=== PATIENT | female | born 1955 | race Caucasian/White ===

== ENCOUNTER 2017-03-24 08:23 | Day surgery (SDC) | payer BC ==
[~2017-03-24] VITALS: Ht 154.9 cm; Wt 61.2 kg
--- NOTE | ~2017-03-24 | EGD ---
EGD REPORT [place] [address] [address] NAME: FERNANDA PASCAL : 53 STATUS : REG [facility] [place] PAT#: [id number] AGE: 61 ADM/REG DATE : 03/24/17 MR#: [id number] REPORT SERV DATE: 03/26/17 DICTATED BY: DATE: REPORT STATUS : Draft TRANSCRIBED BY: [employer] DATE: 03/26/17 [facility] Patient Name: Fernanda Pascal Date of : 1955 Attending MD: NAIF BOLANOS MD Procedure Date No Time: 03/24/2017 Procedure: Upper GI endoscopy Indications: Epigastric abdominal pain, Unexplained chest pain Referring MD: Kalani Izquierdo MD Medicines: Monitored Anesthesia Care Complications: No immediate complications. Procedure: Pre-Anesthesia Assessment: - ASA Grade Assessment: III - A patient with severe systemic disease. After obtaining informed consent, the endoscope was passed under direct vision. Throughout the procedure, the patient's blood pressure, pulse, and oxygen saturations were monitored continuously. The GIF [id number] was introduced through the mouth, and advanced to the third part of duodenum. The upper GI endoscopy was accomplished without difficulty. The patient tolerated the procedure well. Findings: Mild erythema was found at the gastroesophageal junction. No other significant abnormalities were identified in a careful examination of the esophagus. There is no endoscopic evidence of Voss's esophagus, areas of erosion, hiatus hernia, ulcerations or varices in the entire esophagus. Many non-bleeding cratered, linear and superficial gastric ulcers were found in the gastric body and in the gastric antrum. The largest lesion was 4 mm in largest dimension. Biopsies were taken with a cold forceps for histology. No other significant abnormalities were identified in a careful examination of the stomach. There is no endoscopic evidence of varices, stenosis or mass in the entire examined stomach. Patchy mildly erythematous mucosa was found in the duodenal bulb. The exam of the duodenum was otherwise normal. There is no endoscopic evidence of stenosis or ulceration in the entire examined duodenum. The cardia and gastric fundus were normal on retroflexion. Impression: - Erythema at the gastroesophageal junction. - Gastric ulcers with clean base. Biopsied. EGD REPORT [address] [address] NAME: [facility] 53 STATUS : REG [facility] [place] PAT#: [id number] AGE: 61 ADM/REG DATE : 03/24/17 MR#: [id number] REPORT SERV DATE: 03/26/17 DICTATED BY: DATE: REPORT STATUS : Draft TRANSCRIBED BY: [employer] DATE: 03/26/17 - Erythematous duodenopathy. Recommendation: - Patient has a contact number available for emergencies. The signs and symptoms of potential delayed complications were discussed with the patient. Return to normal activities tomorrow. Written discharge instructions were provided to the patient. - Return to previous diet. - Discharge patient to home. - No aspirin, ibuprofen, naproxen, or other non-steroidal anti-inflammatory drugs. - Continue present medications. - Await pathology results. - Use Protonix (pantoprazole) 40 mg PO daily for 12 weeks. - Repeat the upper endoscopy in 12 weeks for surveillance. Procedure Code(s): --- Professional --- 01713, Esophagogastroduodenoscopy, flexible, transoral; with biopsy, single or multiple Diagnosis Code(s): --- Professional --- K22.9, Disease of esophagus, unspecified K25.9, Gastric ulcer, unspecified as acute or chronic, without hemorrhage or perforation K31.89, Other diseases of stomach and duodenum R10.13, Epigastric pain R07.9, Chest pain, unspecified CPT copyright 2013 [employer]. All rights reserved. 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 NAIF BOLANOS MD 03/24/2017 9:57 AM This report has been signed electronically. Number of Addenda: 0 Note Initiated On: 03/24/2017 9:40 AM Scope Withdrawal Time 0 hours 0 minutes 0 seconds [id number] [id number]
[~2017-03-24 08:23] MED LIST: AMIT10 PO; ASAB PO; ASABAYER PO; AT25 PO; ATV1 PO; CALTRA600D PO; CORDARONE PO; CYMBALTA60 PO; ENJUVIA0.3 MG OR; ENJUVIA0.625 MG OR; FIBERCON PO; FISH-EPA1000 MG PO; FOLIC PO; GLUCCHONDR PO; JANTOVEN2.5 MG PO; JANTOVEN5 MG PO; L20 PO; LAN125 PO; LOP25 PO; MAGNESIUM; MAGNESIUM GLUCONATE PO; MAGONATE PO; NEUR300 PO; PCET PO; PREM.3B PO; PROSOM 2 MG TAB2 MG PO; ULTRAM50 PO; VITAMIN B-121000 MC1 SL; VITAMIN B-122500 MCG SL; VITAMIN D31000 UNIT PO; ZANAFLEX 4 MG TA4 MG PO; ZOCOR10 PO; ZOCOR20 PO; ZOL100 PO
== END 2017-03-24 23:59 | disposition home health service (06) ==
LOC: DMU 08:23
PROVIDERS: Internal Medicine Gastroenterology
PROC: 0DB68ZX Excision of Stomach, Via Natural or Artificial Opening Endoscopic, Diagnostic (ICD-10-PCS; principal; 2017-03-24 09:30)
DX: R10.13 Epigastric pain (principal); R07.9 Chest pain, unspecified; E78.5 Hyperlipidemia, unspecified; M79.7 Fibromyalgia; F41.9 Anxiety disorder, unspecified; I10 Essential (primary) hypertension; Z88.5 Allergy status to narcotic agent; Z79.899 Other long term (current) drug therapy; Z87.891 Personal history of nicotine dependence; Z90.710 Acquired absence of both cervix and uterus; Z90.49 Acquired absence of other specified parts of digestive tract; Z98.890 Other specified postprocedural states
CPT/HCPCS: 88305; 88342